=== PATIENT | female | born 1950 | race Caucasian/White ===

== ENCOUNTER → 2024-01-27 15:50 | Outpatient (REF) | payer MEDICARE, OTHER, SELFPAY | LOC: WDC 15:50 | PROVIDERS: ATTENDING PHYSICIAN Physician Assistant Medical | DX: Z12.31 Encounter for screening mammogram for malignant neoplasm of breast (principal) | CPT/HCPCS: 77063; 77067 ==

== ENCOUNTER → 2025-03-07 19:13 | Outpatient (REF) | payer MEDICARE, OTHER, SELFPAY | LOC: WDC 19:13 | PROVIDERS: ATTENDING PHYSICIAN Physician Assistant Medical | DX: Z12.31 Encounter for screening mammogram for malignant neoplasm of breast (principal) | CPT/HCPCS: 77063; 77067 ==

== ENCOUNTER → 2025-03-30 09:31 | Outpatient (REF) | payer MEDICARE, OTHER, SELFPAY | LOC: RAD 09:31 | PROVIDERS: ATTENDING PHYSICIAN Physician Assistant Medical | DX: Z00.00 Encounter for general adult medical examination without abnormal findings (principal); Z78.0 Asymptomatic menopausal state | CPT/HCPCS: 77080 ==

== ENCOUNTER 2025-05-22 16:44 | Inpatient (IN) | payer MEDICARE, OTHER, SELFPAY ==
[2025-05-22] VITALS (7 sets, daily range): BP systolic 117–146; BP diastolic 64–78; BMI 32.5
[2025-05-22 13:40] LABS: Hematocrit 42.0 % (37.0-47.0); Hemoglobin 13.6 g/dL (12.0-16.0); Mean Corp Hgb Conc. 32.4 g/dL (33.0-37.0); Mean Corpuscular Volume 91.9 fL (81.0-99.0); Nucleated Red Blood Cells % 0 %; Platelet Count 332 10^3/uL (130-400); Red Cell Dist. Width 13.3 % (11.5-14.5)
[2025-05-22] MEDS: ZOFRAN 4 MG IV (13:44)
[2025-05-22] MEDS: NSS 1000 IV ×2 (13:44→17:26)
[2025-05-22] MEDS: MORPHINE SULFATE 4 MG IV (13:44)
--- NOTE | 2025-05-22 13:50 | ED.GENMED ---
History of Present Illness
<Mireya Norman PA-C - Last Filed: 05/22/25 15:18>
General
Chief Complaint: Abdominal Pain
Time Seen by Provider: 05/22/25 13:24
History of Present Illness
History of Present Illness:
see MDM
Past History
<Mireya Norman PA-C - Last Filed: 05/22/25 15:18>
Past History
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 Gastritis, UTI, Anemia, )
ED Past Surgical History: Cholecystectomy
Social History
Tobacco: Non-smoker
Alcohol: None
Drug: None
Personal:
Living: alone
Phy Exam
<Mireya Norman PA-C - Last Filed: 05/22/25 15:18>
Physical Exam
Physical Exam:
see MDM
Course
<Mireya Noramn PA-C - Last Filed: 05/22/25 15:18>
Orders/Labs/Results
Orders:
Orders
05/22/25 12:51
EKG [Electrocardiogram (*1)] Urgent
Reason for Study: Abdominal Pain
EKG- Treatment ONCE
05/22/25 13:29
Complete Blood Count/With Diff Urgent
05/22/25 13:30
Comprehensive Metabolic Panel Urgent
Lipase Urgent
05/22/25 13:35
CT Abd/Pel (IV only)-DH only Urgent
Comment:
Reason For Exam: upper abd pain, vomitnig, h/o lymphoma, divertic
0.9% Sodium Chloride 1000 ml [Nss] 1,000 ml IV BOLUS
Morphine Sulfate 4 mg IV NOW STA
Ondansetron Injectable [Zofran] 4 mg IV NOW STA
05/22/25 13:43
Lactic Acid Urgent
05/22/25 15:17
NG Tube [GI tube insertion- Treatment] ONCE
Abnormal Lab Results
05/22/25 05/22/25
13:29 13:30
WBC 11.8 H 10^3/uL
(4.8-10.8)
MCHC 32.4 L g/dL
(33.0-37.0)
Absolute Neuts (auto) 10.1 H 10^3/uL
(1.4-6.5)
Absolute Lymphs (auto) 1.1 L 10^3/uL
(1.2-3.4)
Neutrophils % 85.8 H %
(42.2-75.2)
Lymphocytes % 9.1 L %
(20.5-51.1)
Sodium 134 L mmol/L
(135-145)
BUN 22 H mg/dl
(7-17)
Creatinine 1.3 H mg/dL
(0.6-1.0)
Glucose 162 H mg/dl
(70-99)
05/22/25 13:29
05/22/25 13:30
Vital Signs
Initial and Last Documented VS:
Initial Vital Signs
Temp Pulse Resp BP Pulse Ox
97.9 F 107 16 122/77 98
05/22/25 12:48 05/22/25 12:48 05/22/25 12:48 05/22/25 12:48 05/22/25 12:48
Last Documented Vital Signs
Temp Pulse Resp BP Pulse Ox
97.9 F 87 16 117/65 98
05/22/25 12:48 05/22/25 14:45 05/22/25 14:45 05/22/25 14:00 05/22/25 14:45
Mannylt;Alea Smalls MD - Last Filed: 05/22/25 15:33>
Orders/Labs/Results
Orders:
Orders
05/22/25 12:51
EKG [Electrocardiogram (*1)] Urgent
Reason for Study: Abdominal Pain
EKG- Treatment ONCE
05/22/25 13:29
Complete Blood Count/With Diff Urgent
05/22/25 13:30
Comprehensive Metabolic Panel Urgent
Lipase Urgent
05/22/25 13:35
CT Abd/Pel (IV only)-DH only Urgent
Comment:
Reason For Exam: upper abd pain, vomitnig, h/o lymphoma, divertic
0.9% Sodium Chloride 1000 ml [Nss] 1,000 ml IV BOLUS
Morphine Sulfate 4 mg IV NOW STA
Ondansetron Injectable [Zofran] 4 mg IV NOW STA
05/22/25 13:43
Lactic Acid Urgent
05/22/25 15:17
NG Tube [GI tube insertion- Treatment] ONCE
Abnormal Lab Results
05/22/25 05/22/25
13:29 13:30
WBC 11.8 H 10^3/uL
(4.8-10.8)
MCHC 32.4 L g/dL
(33.0-37.0)
Absolute Neuts (auto) 10.1 H 10^3/uL
(1.4-6.5)
Absolute Lymphs (auto) 1.1 L 10^3/uL
(1.2-3.4)
Neutrophils % 85.8 H %
(42.2-75.2)
Lymphocytes % 9.1 L %
(20.5-51.1)
Sodium 134 L mmol/L
(135-145)
BUN 22 H mg/dl
(7-17)
Creatinine 1.3 H mg/dL
(0.6-1.0)
Glucose 162 H mg/dl
(70-99)
05/22/25 13:29
05/22/25 13:30
Vital Signs
Initial and Last Documented VS:
Initial Vital Signs
Temp Pulse Resp BP Pulse Ox
97.9 F 107 16 122/77 98
05/22/25 12:48 05/22/25 12:48 05/22/25 12:48 05/22/25 12:48 05/22/25 12:48
Last Documented Vital Signs
Temp Pulse Resp BP Pulse Ox
97.9 F 87 16 117/65 98
05/22/25 12:48 05/22/25 14:45 05/22/25 14:45 05/22/25 14:00 05/22/25 14:45
<Mireya Norman PA-C - Last Filed: 05/22/25 15:18>
MDM/Problems Addressed
Differential Diagnosis Includes:
see mdm
MDM/Problems Addressed:
Note:
CHIEF COMPLAINT(S)
Abdominal pain and vomiting.
HISTORY OF PRESENT ILLNESS
The patient is 75 y/o a female with a history of lymphoma,currently in remission, experiencing abdominal pain starting yesterday. The pain is localized to the upper abdomen, often associated with her known episodes of diverticulitis. She reports
having experienced similar pain in the past and described it as typically resulting in vomiting. The vomiting provides temporary relief before the symptoms return. The patient describes her current pain as intense, rating it a nine on a scale of
zero to ten before vomiting, which then decreases to a six. She notes accompanying nausea intensifies with the pain and results in vomiting. There is a history of lymphoma in 2016, which was treated at the hospital over an 80-day period. when pt dx
with lymphoma she had large mass and SBO 2016. no resection
She experiences dehydration due to her symptoms.
pt says she denies having previous abd surgery except bx.
CHRONIC MEDICAL CONDITIONS SIGNIFICANTLY AFFECTING CARE
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
MEDICATIONS
The patient has previously used ondansetron for nausea, initially prescribed during an earlier visit.
REVIEW OF SYSTEMS
- Abdominal: Reports upper abdominal pain, previously diagnosed with diverticulitis, and no history of peptic ulcer disease or gastritis mentioned.
- Gastrointestinal: Nausea and vomiting present; no bowel surgeries or bowel obstructions reported.
- Past Oncological History: History of lymphoma with treatment completed successfully.
PHYSICAL EXAM
- Nursing notes reviewed and vital signs reviewed.
GENERAL: Alert , in no apparent distress
EYE: pupils equal and reactive
NECK: Supple
ENT: o/p clr, mmm.
CARDIAC: Regular rate and rhythm .
LUNGS: Clear breath sounds bilaterally, no acute respiratory distress, no wheezes/rales/rhonchi
ABDOMEN: Soft, moderate epigastric tenderness, mild distention, no r/g, no cvat, normal bowel sounds
NEUROLOGICAL: Alert and oriented, no focal neuro deficits
SKIN: Warm and dry, skin intact. Pale
MUSCULOSKELETAL: No edema, well perfused. neg leonel's sign
PSYCH: Normal and appropriate interaction.
PLAN
- Administer intravenous fluids to address dehydration.
- Provide medication for nausea and pain relief.
- Initiate a computed tomography scan to assess the abdominal condition.
- No oral intake until further evaluation and diagnosis are completed.
DIFFERENTIAL DIAGNOSIS
The Differential Diagnosis includes, in no particular order and is not limited to:
1. Diverticulitis
2. Bowel obstruction
3. Gastroenteritis
4. Peptic ulcer disease
5. Intestinal ischemia
6. Pancreatitis
7. Gastritis
8. Hernia
9. Ovarian pathology
10. Abdominal lymphoma relapse
75 y/o F
here with upper abd pain, nausea/vomiting
h/o previous similar episodes of divertic that she says is c/w this
pt had large mass in her abdomen with SBO in the past when she got diagnosed with lymphoma
she had no surgery but medication and is in remission
tender upper abd
h/o mumtaz
will w/u with labs, ct
05/22/25 - 15:16
The patient has been diagnosed with a bowel obstruction, likely due to adhesions from previous issues rather than a soft tissue mass. The obstruction is located in the left lower quadrant without an apparent mass, which is an improvement over the
2016 diagnosis. Decompression via a nasogastric tube to remove the fluid build-up in the stomach is planned to alleviate symptoms and potentially avoid surgery. The patient will be admitted to the hospital for a few days to resolve the obstruction,
during which they will not be able to eat or drink. Diverticulosis is present, but there is no current diverticulitis.
<Mireya Norman PA-C - Last Filed: 05/22/25 15:18>
*Pulse Oximetry
SaO2: 96
Oxygen Mode of Delivery: Room air
Patient hypoxic: no (98)
*Critical Care Note
Total Time (30-74mins, 75-104mins- exclusive of procedures): Not Applicable
ED Attending Note
<Mireya Norman PA-C - Last Filed: 05/22/25 15:18>
-
Portions of this chart may have been created with voice recognition software.� Occasional wrong word or��sound alike� substitutions may have occurred due to the inherent limitations of voice recognition software.
<Alea Smalls MD - Last Filed: 05/22/25 15:33>
ED Attending Note
Patient seen and examined by attending physician: Yes
I performed the substantive portion of visit, reviewed & personally made and approve the management plan that is documented in note by myself or NARCISO.: Yes
ED Attending Note:
I have seen and evaluated the patient with a [id number] encounter. I have spoken to the [NARCISO] and involved in the medical history, the physical exam, medical decision making.
Evaluation and management service: agree unless noted differently below.
Results interpretation: agree unless noted differently below.
75-year-old woman presenting to the emergency department with abdominal pain and vomiting. Patient states that this following her prior episodes of diverticulitis. She states that the pain is epigastric she has had multiple episodes of emesis. No
diarrhea. No recent travel. No antibiotics. No prior abdominal surgeries. Evaluation patient is resting comfortably. Her abdomen does show epigastric tenderness and mild tension. Differential is broad but consist of diverticulitis versus bowel
obstruction versus gastroenteritis. CT scan per my interpretation consistent with a bowel obstruction. On reevaluation patient does feel much better after receiving pain control as well as antiemetics. Will admit to the hospitalist.
Discharge Plan
Departure
Patient Disposition: Admit
Date of Disposition: 05/22/25
Time of Disposition: 15:19
Admit to: Med/Surg
Presentation/result/management discussed w/ accepting MD/DO: Hospitalist
Condition: Fair
Covid-19: Not Applicable
Discharge Problem:
SBO (small bowel obstruction)
Prescriptions:
No Action
Theragen Tablet
1 tab PO DAILY
levothyroxine [Synthroid] 75 mcg Tablet
75 mcg PO DAILY
ibuprofen [Advil] 200 mg Tablet
200 mg PO Q6HPRN PRN (Reason: mild pain)
bismuth subsalicylate [Pepto-Bismol] 262 mg Tablet,Chewable
2 tab PO DAILYPRN PRN (Reason: gerd)
pyridoxine (vitamin B6) 100 mg Tablet
100 mg PO DAILY
cholecalciferol (vitamin D3) [Vitamin D3] 50 mcg (2,000 unit) Capsule
50 mcg PO DAILY
lutein 6 mg Tablet
20 mg PO DAILY
Referrals:
Marysol Summers PA-C [Family Provider, Family Practice]
Interventions
Interventions:
*Risk Screen - Suicide Last Done: 05/22/25 12:48
*Neglect/Abuse Screening Last Done: 05/22/25 12:48
PX-[id number]-Tviwuszjcx Assessment Last Done: 05/22/25 13:30
Discharge Date and Time
Print Language: SOUTH AFR[place]
[2025-05-22 14:11] LABS: ALT (SGPT) 18 U/L (0-35); AST (SGOT) 29 U/L (14-36); Albumin 4.4 g/dl (3.5-5.0); Alkaline Phosphatase 107 U/L (38-126); Blood Urea Nitrogen 22 mg/dl (7-17); Calcium 9.5 mg/dl (8.4-10.2); Carbon Dioxide 24 mmol/L (22-30); Chloride 101 mmol/L (98-107); Glucose 162 mg/dl (70-99); Lipase 123 U/L (23-300); Potassium 4.5 mmol/L (3.5-5.1); Sodium 134 mmol/L (135-145); Total Protein 7.9 g/dl (6.3-8.2); eGFR 43.42
--- NOTE | 2025-05-22 15:52 | HPS.HSE ---
Addendum entered and electronically signed by Pricilla Romero MD 05/22/25 16:24:
see update note for addendum
Original Note:
Family Physician
-
Family Physician: Marysol Summers
Chief Complaint
-
Abdominal pain
History of Present Illness
75-year-old female with history of lymphoma of the gut in 2016, diverticulitis presents complaining of severe abdominal pain and vomiting. Patient states that she has been having bloating,nausea and mild abdominal pain for the past 2 days. Pain
was around epigastric region and grew in intensity. At 5 AM this morning nausea intensifies with the pain and results in vomiting. she had 6-7 episodes of vomiting. She was unable to take oral fluids. She admits to passing gas, last bowel
movement 1 day ago. She denies passing out, fever, chills, shortness of breath.
Medical History
Past Medical History
Past Medical History: Reports Hypothyroidism and Other (Diverticulitis, lymphoma of the gut )
Past Surgical History: Reports None and Other
Social History
Tobacco: Non-smoker
Alcohol: None
Drug: None
Personal:
Living: With Family
Employment: Retired
Family History
Family History: Not pertinent
Allergies / Home Medications
Allergies reflects when Allergies were last updated in [facility] [employer].
Home Medications with original date entered in [employer]
Allergy/Medication List:
Allergies
Allergy/AdvReac Type Severity Reaction Status Date / Time
Sulfa (Sulfonamide Allergy Rash Verified 06/02/23 22:18
Antibiotics)
Home Medications
bismuth subsalicylate 262 mg chewable tablet (Pepto-Bismol) 2 tab PO DAILYPRN PRN gerd 05/22/25
cholecalciferol (vitamin D3) 50 mcg (2,000 unit) capsule (Vitamin D3) 50 mcg PO DAILY Supplement 05/22/25
ibuprofen 200 mg tablet (Advil) 200 mg PO Q6HPRN PRN mild pain 05/22/25
levothyroxine 75 mcg tablet (Synthroid) 75 mcg PO DAILY Thyroid 05/22/25
lutein 6 mg tablet 20 mg PO DAILY Supplement 05/22/25
pyridoxine (vitamin B6) 100 mg tablet 100 mg PO DAILY Supplement 05/22/25
therapeutic multivitamin 1 tab PO DAILY Supplement 05/22/25
Review of Systems
-
History Source: Patient
A 12 point ROS was completed and negative except as noted: Yes
Physical Exam
Vital Signs
Vital Signs
Temp Pulse Resp BP Pulse Ox
97.9 F 93 15 122/64 98
05/22/25 12:48 05/22/25 15:45 05/22/25 15:45 05/22/25 15:00 05/22/25 15:45
Physical Exam
General: Comfortable, Conversant and Other (Pain free post IV morphine)
HEENT: NormoCephalic and Anicteric
Respiratory: Clear
Cardiac: S1/S2 and Regular Rhythm
GI: Soft, Non Tender, Non Distended and Other (Hypoactive bowel sounds)
Musculoskeletal: No Clubbing, No Cyanosis and No Edema
Skin: Warm
Neuro: AO x 3
Hematologic/Lymphatic: No Lymphadenopathy
Psych: Calm
Laboratory Results
-
05/22/25 13:29
05/22/25 13:30
Laboratory Results
Lactic Acid 1.9 mmol/L (0.7-2.0) 05/22/25 13:43
Total Bilirubin 0.6 mg/dl (0.2-1.3) 05/22/25 13:30
AST 29 U/L (14-36) 05/22/25 13:30
ALT 18 U/L (0-35) 05/22/25 13:30
Alkaline Phosphatase 107 U/L (38-126) 05/22/25 13:30
Lipase 123 U/L (23-300) 05/22/25 13:30
Data Reviewed
-
CT Scan: Report Reviewed by me and Discussed with Physician
Lab Data: Labs Reviewed by me and Discussed with Physician
Impression/Plan
-
IMPRESSION:
Acute small bowel obstruction
Nausea
LINUS
History of lymphoma in gut
Hypothyroidism
PLAN:
Acute small bowel obstruction
Differential diagnosis: Adhesions, strictures (post chemotherapy in 2016)
Afebrile, normal white count
NG tube placed in ED for decompression
Consult general surgery
IV fluids
IV morphine for pain control
NPO. Hold all oral medication
CT abdomen/pelvis reveals small bowel obstruction with transition in the left lower quadrant. The transition is focal and localized without an apparent soft tissue mass
Nausea
IV Zofran as needed
LINUS
Likely due to dehydration with constant emesis
Creatinine 1.3. Baseline 1.0
IV fluids
Monitor BMP
History of lymphoma in gut
Diagnosed in 2016
In remission, s/p chemotherapy and radiation
Hypothyroidism
Hold levothyroxine
Full code
Lovenox
NPO
--- NOTE | 2025-05-22 16:19 | W.PN.UPDATE ---
Update Note
Progress Note Update
I have personally supervised the history, physical exam, medical decision-making, and care plan for this patient in conjunction with the resident. I have reviewed and discussed the resident�s documentation and findings. I confirm that this note
accurately reflects my supervision and input in the care of this patient.
Briefly 75 y/o F, hx of bowel lymphoma, prior cholecystectomy presents to ER with severe abd pain (epigastric, nonradiating) since 5 AM associated with intense nausea and multiple episodes of vomiting. Unable to keep any fluids down. Reports + gas
and last BM 1 day prior. No other complaints. in ER CT revealed Small bowel obstruction with transition in the left lower quadrant. The transition is focal and localized; possibly related to a stricture or adhesion. NGT tube was placed in ER.
Exam:
General: Comfortable, Conversant and Other (Pain free post IV morphine)
HEENT: NormoCephalic and Anicteric
Respiratory: Clear
Cardiac: S1/S2 and Regular Rhythm
GI: Soft, Non Tender, Non Distended and Other (Hypoactive bowel sounds)
Musculoskeletal: No Clubbing, No Cyanosis and No Edema
Skin: Warm
Neuro: AO x 3
Hematologic/Lymphatic: No Lymphadenopathy
Psych: Calm
Assessment:
SBO
- conservative measures for now
- NGT, NPO, IVF
- pain control, anti-emetics
- GS consulted
DVT ppx: SC heparin
Code: Full
[2025-05-22] MEDS: MORPHINE SULFATE 2 MG IV (17:29)
--- NOTE | 2025-05-22 18:34 | PTCARENOTE ---
Received pt from ED via stretcher. NG tube present in R nare. No order for NG tube or for NG tube suction, made aware. AAOx3. Ambulated to bed with standby assist. Daughter at bedside. Assessed and oriented to room. Will continue to monitor.
[2025-05-22] MEDS: LOVENOX 40 MG SC (18:40)
[2025-05-23] MEDS: NSS 1000 IV ×2 (04:51→17:25)
[2025-05-23 06:38] LABS: Hematocrit 29.7 % (37.0-47.0); Hemoglobin 10.2 g/dL (12.0-16.0); Mean Corp Hgb Conc. 34.3 g/dL (33.0-37.0); Mean Corpuscular Volume 91.7 fL (81.0-99.0); Platelet Count 245 10^3/uL (130-400); Red Cell Dist. Width 13.9 % (11.5-14.5)
[2025-05-23 07:02] LABS: Blood Urea Nitrogen 21 mg/dl (7-17); Calcium 8.0 mg/dl (8.4-10.2); Carbon Dioxide 26 mmol/L (22-30); Chloride 108 mmol/L (98-107); Estimated Creatinine Clearance 39 ml/min; Glucose 81 mg/dl (70-99); Potassium 4.2 mmol/L (3.5-5.1); Sodium 139 mmol/L (135-145); eGFR 43.42
[2025-05-23 07:10] VITALS: BP 129/65
--- NOTE | 2025-05-23 08:20 | W.PN.HOSP.TC ---
Today's Communication/Plan
-
cont NGT decompression as per sx
IVF support
Assessment / Plan
Assessment / Plan
Physical Exam
General: No acute distress, appears comfortable at this time
HEENT: NormoCephalic and Anicteric NGT in place
Respiratory: Clear
Cardiac: S1/S2 and Regular Rhythm
GI: Soft, Non Tender, Non Distended and Other (Hypoactive bowel sounds)
Musculoskeletal: No Clubbing, No Cyanosis and No Edema
Skin: Warm
Neuro: AO x 3 conversant coherent
Hematologic/Lymphatic: No Lymphadenopathy
Psych: Calm
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 Patient stated that she had been having bloating,nausea and mild abdominal pain for the past 2 days. Pain was around epigastric region and
grew in intensity. At 5 AM this morning nausea intensifies with the pain and resulted in vomiting. she had 6-7 episodes of vomiting. She was unable to take oral fluids.
Acute small bowel obstruction
Differential diagnosis: Adhesions, strictures (post chemotherapy in 2016)
Afebrile, normal white count
NG tube placed in ED for decompression
Consult general surgery appreicated
IV fluids
IV morphine for pain control
NPO. Hold all oral medication
CT abdomen/pelvis reveals small bowel obstruction with transition in the left lower quadrant. The transition is focal and localized without an apparent soft tissue mass
Nausea
IV Zofran as needed
LINUS
Likely due to dehydration with constant emesis
Creatinine 1.3. Baseline 1.0
IV fluids
Monitor BMP
History of lymphoma in gut
Diagnosed in 2016
In remission, s/p chemotherapy and radiation
Hypothyroidism
Hold levothyroxine
Full code
Lovenox
NPO
I spent a total of 40 minutes with the patient or on the floor. More than 50% of this time involved counseling and coordination of care.
Anticipated Discharge: Within 24 hours
Subjective/Interval History
-
Date of Service: May 23, 2025
Overall reports feeling well. Endorses flatus. Tolerating NGT
Objective Data
-
Labs:
Laboratory Results
05/23/25
05:48
WBC 5.2
Hgb 10.2 L D
Hct 29.7 L
Plt Count 245 D
Sodium 139
Potassium 4.2
Chloride 108 H
Carbon Dioxide 26
BUN 21 H
Creatinine 1.3 H
Glucose 81
Calcium 8.0 L D
Vital Signs:
Vital Signs
Temp Pulse Resp BP Pulse Ox
98.4 F 73 16 129/65 94
05/23/25 07:10 05/23/25 07:10 05/23/25 07:10 05/23/25 07:10 05/23/25 07:10
I&O
05/22/25 05/23/25 05/24/25
06:59 06:59 06:59
Intake Total 1160 / 1160
Output Total 250 / 250
Balance 910 / 910
--- NOTE | 2025-05-23 10:02 | CON.GS ---
Consultation
-
Date/Time Consultation Requested: 05/22/2025 5 PM
Date/Time Consultation Performed: 05/23/2025 8 AM
Requesting Provider: Dr. Gutiérrez
Performing Provider: Dr. Bernabe
Reason for Consultation: Small bowel obstruction
Medical History
-
Chief Complaint: Abdominal pain, nausea and vomiting.
History of Present Illness:
This is a 75-year-old female with a history of bowel lymphoma status post lower midline exploratory laparotomy for biopsy and subsequent robotic cholecystectomy with Dr. Rico in 2019 for acute calculous cholecystitis (of note I did review his
operative report which he did not indicate there was any significant intra-abdominal adhesions). She presents with a 3-day history of worsening abdominal pain, nausea and vomiting. She states that she has had similar but minor episodes in the past
and has never been diagnosed with a true small bowel obstruction previously. Patient states that she is passing flatus. The patient denies Fever, Chest Pain, Shortness Of Breath, Nausea, Vomiting, changes in urinary habits, unintentional weight
loss, jaundice, icterus, acolic stools.
Past Medical History
Past Medical History: Other (Lymphoma)
Past Surgical History: Other (Mini exploratory laparotomy through a lower midline incision for lymph node Path for her lymphoma diagnosis. Robotic cholecystectomy)
Social History
Tobacco: Non-Smoker
Alcohol: None
Drug: None
Personal:
Living: With Family
Employment: Retired
Family History
Family History: Reviewed & Not Pertinent
Allergies / Home Medications
Allergy/AdvReac Type Severity Reaction Status Date / Time
Sulfa (Sulfonamide Allergy Rash Verified 06/02/23 22:18
Antibiotics)
�Medication �Instructions �Recorded �Confirmed �Type
bismuth subsalicylate 262 mg 2 tab PO DAILYPRN PRN gerd 05/22/25 05/22/25 History
chewable tablet (Pepto-Bismol)
cholecalciferol (vitamin D3) 50 50 mcg PO DAILY Supplement 05/22/25 05/22/25 History
mcg (2,000 unit) capsule (Vitamin
D3)
ibuprofen 200 mg tablet (Advil) 200 mg PO Q6HPRN PRN mild pain 05/22/25 05/22/25 History
levothyroxine 75 mcg tablet 75 mcg PO DAILY Thyroid 05/22/25 05/22/25 History
(Synthroid)
lutein 6 mg tablet 20 mg PO DAILY Supplement 05/22/25 05/22/25 History
pyridoxine (vitamin B6) 100 mg 100 mg PO DAILY Supplement 05/22/25 05/22/25 History
tablet
therapeutic multivitamin 1 tab PO DAILY Supplement 05/22/25 05/22/25 History
Review of Systems
-
All other systems: Negative unless noted
A 10 point review of systems was completed, and was negative except as per HPI.
Physical Exam
Vital Signs
Temp Pulse Resp BP Pulse Ox
98.4 F 73 16 129/65 94
05/23/25 07:10 05/23/25 07:10 05/23/25 07:10 05/23/25 07:10 05/23/25 07:10
05/22/25 05/23/25 05/24/25
06:59 06:59 06:59
Actual Weight 83.2 kg
Body Mass Index (BMI) 32.5
Lab Results
05/23/25 05:48
05/23/25 05:48
WBC 5.2 10^3/uL (4.8-10.8) 05/23/25 05:48
Hgb 10.2 g/dL (12.0-16.0) L D 05/23/25 05:48
Hct 29.7 % (37.0-47.0) L 05/23/25 05:48
Plt Count 245 10^3/uL (130-400) D 05/23/25 05:48
Abs Immat Gran (auto) 0.0 10^3/uL (0-0.05) 05/22/25 13:29
Neutrophils % 85.8 % (42.2-75.2) H 05/22/25 13:29
Physical Exam
General: Well Developed
HEENT: Normocephalic and Other (NG tube with orange which output, only 40 cm of the nose will likely need to be advanced.)
Respiratory: Non Labored Respirations
GI: Soft, Non Tender and Distended
Data Reviewed
-
CT Scan: Image Personally Visualized and interpreted, Report Reviewed by me and Discussed with Patient
Labs: Labs Reviewed by me and Discussed with Patient
Total Time Spent with Patient (in minutes): 35
Assessment / Plan
-
This is a 75-year-old female who has a history of lymphoma status post mini ex lap for biopsy/diagnosis, robotic cholecystectomy who presents with abdominal pain, nausea and vomiting found to have a small bowel obstruction confirmed on CT scan
though endorses passing flatus today.
Will manage her small bowel obstruction nonoperatively for now.
N.p.o., IV fluids, continue NG tube to low intermittent wall suction. I did obtain an x-ray which demonstrates the NG tube is quite shallow, message sent to nurse to advance to 12 cm and resecure.
Will plan for a small bowel follow-through tomorrow
I spent 75 minutes in total for the care of this patient today including direct patient care and counseling, reviewing labs, imaging, coordination of care, as well as documentation.
[2025-05-23 15:30] VITALS: BP 126/58
--- NOTE | 2025-05-23 16:26 | CM ---
Patient seen at bedside on . Patient stated that she lives alone and that she has no DME. Patient currently driving and independent of ADL's. Patient PCP is Dr. Marysol Alvarez and she uses the [facility]. Patient stated
that she does not anticipate any needs at discharge. CM will continue to follow for discharge planning needs.
Plan; home with no needs.
[2025-05-23] MEDS: LOVENOX 40 MG SC (17:26)
[2025-05-23 18:20] VITALS: BMI 31.9
[2025-05-23 19:26] LABS: Hepatitis C Antibody Negative (Negative)
[2025-05-23 23:20] VITALS: BP 130/67
[2025-05-24] MEDS: NSS 1000 IV (04:46)
[2025-05-24 06:43] LABS: Hematocrit 30.4 % (37.0-47.0); Hemoglobin 10.1 g/dL (12.0-16.0); Mean Corp Hgb Conc. 33.2 g/dL (33.0-37.0); Mean Corpuscular Volume 93.3 fL (81.0-99.0); Platelet Count 249 10^3/uL (130-400); Red Cell Dist. Width 13.9 % (11.5-14.5)
[2025-05-24 07:00] VITALS: BP 137/68
[2025-05-24 07:29] LABS: Blood Urea Nitrogen 18 mg/dl (7-17); Calcium 8.3 mg/dl (8.4-10.2); Carbon Dioxide 20 mmol/L (22-30); Chloride 110 mmol/L (98-107); Estimated Creatinine Clearance 46 ml/min; Glucose 50 mg/dl (70-99); Magnesium 1.8 mg/dl (1.6-2.3); Potassium 4.5 mmol/L (3.5-5.1); Sodium 138 mmol/L (135-145); eGFR 53.06
--- NOTE | 2025-05-24 07:42 | W.PN.HOSP.TC ---
Today's Communication/Plan
-
discharge
Assessment / Plan
Assessment / Plan
Physical Exam
General: No acute distress, appears comfortable at this time
HEENT: NormoCephalic and Anicteric
Respiratory: Clear
Cardiac: S1/S2 and Regular Rhythm
GI: Soft, Non Tender, Non Distended, bowel sounds present
Musculoskeletal: No Clubbing, No Cyanosis and No Edema
Skin: Warm
Neuro: AO x 3 conversant coherent
Psych: Calm
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 Patient stated that she had been having bloating,nausea and mild abdominal pain for the past 2 days. Pain was around epigastric region and
grew in intensity. At 5 AM this morning nausea intensifies with the pain and resulted in vomiting. she had 6-7 episodes of vomiting. She was unable to take oral fluids.
Acute small bowel obstruction
suspect d/t Adhesions, strictures (post chemotherapy in 2016)
Afebrile, normal white count
NG tube placed in ED for decompression
IV fluids completed
IV morphine for pain control (has not required since 05/22)
CT abdomen/pelvis reveals small bowel obstruction with transition in the left lower quadrant. The transition is focal and localized without an apparent soft tissue mass
Significant clinical improvement since admission
GS eval appreciated 05/24 NGT discontinued, Clear liquid diet started, advance as tolerated to low residue, ok to discharge if tolerating low residue diet
Nausea Resolved
IV Zofran as needed (has not required since NGT placement)
LINUS
Likely due to dehydration with constant emesis since resolved
Creatinine 1.3. Baseline 1.0
LINUS resolved
IV fluids completed
History of lymphoma in gut
Diagnosed in 2016
In remission, s/p chemotherapy and radiation
Hypothyroidism
ok to resume levothyroxine on discharge.
Full code
dvt ppx Lovenox
Total Time Preparing Discharge __40 minutes including examination of the patient, summary of the hospital stay, instructions for continuing care to all relevant caregivers; and preparation of discharge records, prescriptions, and referral
forms if necessary.
Anticipated Discharge: Today
Subjective/Interval History
-
Date of Service: May 24, 2025
Seen and examined at bedside in no acute distress, sitting up comfortably in bed. Overall reports feeling well. Denies new acute issues. Reports flatus. Eager to go home.
Objective Data
-
Labs:
Laboratory Results
05/24/25
05:51
WBC 4.9
Hgb 10.1 L
Hct 30.4 L
Plt Count 249
Sodium 138
Potassium 4.5
Chloride 110 H
Carbon Dioxide 20 L
BUN 18 H
Creatinine 1.1 H
Glucose 50 L*
Calcium 8.3 L
Vital Signs:
Vital Signs
Temp Pulse Resp BP Pulse Ox
98.1 F 75 16 130/67 96
05/23/25 23:20 05/23/25 23:20 05/23/25 23:20 05/23/25 23:20 05/23/25 23:20
I&O
05/23/25 05/24/25 05/25/25
06:59 06:59 06:59
Intake Total 1160 / 1160 800 / 800
Output Total 250 / 250
Balance 910 / 910 775 / 775
[2025-05-24 08:24] LABS: Glucose - Point of Care 58 mg/dl (70-99)
[2025-05-24] MEDS: DEXTROSE 50% SYRINGE 12.5 GRAMS IV ×2 (09:02→12:07)
[2025-05-24] MEDS: D5/0.9% SODIUM CHLORIDE 1000 IV (09:02)
[2025-05-24 11:52] LABS: Glucose - Point of Care 69 mg/dl (70-99)
--- NOTE | 2025-05-24 13:13 | W.PN.GS2 ---
Today's Communication / Plan
-
Trial cld
Assessment / Plan
-
75F with pSBO likely 2/2 adhesions, resolving
AFVSS
SBFT cancelled yesterday 2/2 residual contrast in colon
Given clinical improvmeent, will defer study for now
DC NGT
Trial CLD
ADAT to LRD
Dietary education provided
Subjective Data
-
Date of Service: May 24, 2025
Feels improved, passing flatus and BMs, denies n/v, denies ab pain, anxious to advance her care and go home
Objective Data
-
Intake and Output
05/23/25 05/24/25 05/25/25
06:59 06:59 06:59
Intake Total 1160 / 1160 800 / 800
Output Total 250 / 250 / 25
Balance 910 / 910 775 / 775
Intake:
IV fluids (Total) 1100 / 1100 800 / 800
Amount instilled into GI Tube ( 60 / 60
Total)
[place] Sump 60 / 60
Output:
Gastrointestinal tube output ( 250 / 250 25 / 25
Total)
[place] Sump 250 / 250 25 / 25
Other:
Number of approximated MODERATE 3 2
amounts of urine
Vital Signs
Temp Pulse Resp BP Pulse Ox
98.2 F 84 16 137/68 97
05/24/25 07:00 05/24/25 07:00 05/24/25 07:00 05/24/25 07:00 05/24/25 07:00
Lab Results
05/24/25 05:51
05/24/25 05:51
Calcium 8.3 mg/dl (8.4-10.2) L 05/24/25 05:51
Phosphorus 3.4 mg/dl (2.5-4.5) 05/24/25 05:51
Magnesium 1.8 mg/dl (1.6-2.3) 05/24/25 05:51
Total Bilirubin 0.6 mg/dl (0.2-1.3) 05/22/25 13:30
AST 29 U/L (14-36) 05/22/25 13:30
ALT 18 U/L (0-35) 05/22/25 13:30
Alkaline Phosphatase 107 U/L (38-126) 05/22/25 13:30
Total Protein 7.9 g/dl (6.3-8.2) 05/22/25 13:30
Albumin 4.4 g/dl (3.5-5.0) 05/22/25 13:30
Physical Exam
-
Gen: NAD
Abd: soft, mild distention, nt
Patient has a dockery catheter: No
Patient has a central line: No
[2025-05-24 14:26] LABS: Glucose - Point of Care 56 mg/dl (70-99)
--- NOTE | 2025-05-24 14:28 | CM ---
patient seen at bedside
NGT dc
clear liq diet
IMM explained & signed. In chart
PLAN: Home, no needs when stable
[2025-05-24 14:44] LABS: Glucose - Point of Care 57 mg/dl (70-99)
[2025-05-24 15:00] VITALS: BP 145/68
[2025-05-24 15:27] LABS: Glucose - Point of Care 100 mg/dl (70-99)
--- NOTE | 2025-05-24 16:52 | W.DCSUMMARY ---
Discharge Summary
Discharge Data
Date of Admission: 05/22/25
Date of Discharge: 05/24/25
-
Pending Results: No
Discharge Plan
-
Patient Disposition: Home (Routine Discharge)
Discharge Diagnosis/Procedures: Small Bowel Obstruction resolved
Acute Kidney Injury Resolved
Mild Anemia
Condition: Fair
Diet: Low Residue
Additional Diets: Low Residue Diet for 1 week then ok to advance as tolerated.
Activity: As tolerated
Driving Restrictions: As prior to admission
Bathing Restrictions: None
Blood Work: Repeat CBC and BMP with primary care provider in 1 week of discharge.
Activity Restrictions/Additional Instructions:
Follow up with primary care provider in 1 week of discharge and surgeon in 2-4 weeks of discharge.
Referrals:
Marysol Summers PA-C [Family Provider, Family Practice] - in one week
Natalio Gomez MD [Active, Surgical] - in two to four weeks
Prescriptions:
Continued
therapeutic multivitamin Tablet
1 tab PO DAILY
levothyroxine [Synthroid] 75 mcg Tablet
75 mcg PO DAILY
ibuprofen [Advil] 200 mg Tablet
200 mg PO Q6HPRN PRN (Reason: mild pain)
bismuth subsalicylate [Pepto-Bismol] 262 mg Tablet,Chewable
2 tab PO DAILYPRN PRN (Reason: gerd)
pyridoxine (vitamin B6) 100 mg Tablet
100 mg PO DAILY
cholecalciferol (vitamin D3) [Vitamin D3] 50 mcg (2,000 unit) Capsule
50 mcg PO DAILY
lutein 6 mg Tablet
20 mg PO DAILY
Discharge Orders:
Discharge Patient (As Directed); Ordered 05/24/25
Ordered By: Migue Gutiérrez
Discharge Date and Time
Print Language: [place]
[2025-05-24] MEDS: LOVENOX SC (17:10)
[2025-05-24 17:28] VITALS: BP 135/77
== END 2025-05-24 18:32 | disposition home or self-care (01) | DRG 389 ==
LOC: 3 WEST ACU 16:44
PROVIDERS: Emergency Medicine; Physician Assistant; Student in an Organized Health Care Education/Training Program; ADMITTING PHYSICIAN Internal Medicine; ATTENDING PHYSICIAN Internal Medicine; EMERGENCY PHYSICIAN Student in an Organized Health Care Education/Training Program; FAMILY PHYSICIAN Physician Assistant Medical; OTHER PHYSICIAN Surgery
PROC: 0D9670Z Drainage of Stomach with Drainage Device, Via Natural or Artificial Opening (ICD-10-PCS; 2025-05-24)
DX: K56.51 Intestinal adhesions [bands], with partial obstruction (principal); N17.9 Acute kidney failure, unspecified; D64.9 Anemia, unspecified; E03.9 Hypothyroidism, unspecified; Z92.3 Personal history of irradiation; Z92.21 Personal history of antineoplastic chemotherapy
CPT/HCPCS: 71045; 74177; 80048; 80053; 82962; 83605; 83690; 83735; 84100; 85025; 85027; 86803; 93005; 96361; 96374; 96375; 99285; Q9967